=== PATIENT | male | born 1940 | race Caucasian/White ===

== ENCOUNTER 2017-12-24 00:40 | Emergency (ER) | payer MEDICARE ==
[2017-12-24 01:41] LABS: APPEARANCE,URINE SLIGHTLY-CLOUDY; BILIRUBIN,URINE NEGATIVE (NEGATIVE); COLOR,URINE YELLOW; GLUCOSE, URINE NEGATIVE (NEGATIVE); KETONES,URINE NEGATIVE (NEGATIVE); LEUKOCYTE ESTERASE,URINE NEGATIVE (NEGATIVE); NITRITE,URINE NEGATIVE (NEGATIVE); PROTEIN,URINE NEGATIVE (NEGATIVE); UROBILINOGEN,URINE NEGATIVE mg/dL (<2.0)
--- NOTE | 2017-12-24 01:42 | ER Document Report ---
ED Medical Screen (RME) - General Chief Complaint: Chest Pain Stated Complaint: CHEST PAIN Time Seen by Provider: 12/24/17 01:40 Mode of Arrival: Wheelchair Information source: Patient Notes: Patient presents complaining of midsternal chest pain that goes to the upper abdomen that started today around 8 PM. Patient states he also had pain to bilateral arms. Patient states pain would worsen when he would recline and would get better when he would sit upright. Patient states that the pain did seem to be somewhat worse after eating. Patient denies any nausea or vomiting, difficulty breathing, cough or cold symptoms. I have greeted and performed a rapid initial assessment of this patient. A comprehensive ED assessment and evaluation of the patient, analysis of test results and completion of the medical decision making process will be conducted by additional ED providers. TRAVEL OUTSIDE OF THE [place] IN LAST 30 DAYS: No Physical Exam - Vital signs Vitals: Temp Pulse Resp BP Pulse Ox 97.9 F 57 L 16 198/103 H 99 12/24/17 00:53 12/24/17 00:53 12/24/17 00:53 12/24/17 00:53 12/24/17 00:53 - Cardiovascular Rhythm: Regular Heart sounds: S1 appreciated, S2 appreciated - Abdominal Inspection: Normal Tenderness: Nontender Course - Vital Signs Vital signs: Temp Pulse Resp BP Pulse Ox 97.9 F 57 L 16 198/103 H 99 12/24/17 00:53 12/24/17 00:53 12/24/17 00:53 12/24/17 00:53 12/24/17 00:53
[2017-12-24 02:12] LABS: ABSOLUTE EOSINOPHILS # (AUTO) 0.2 10^3/uL (0.0-0.6); ABSOLUTE LYMPHOCYTES (AUTO) 0.8 10^3/uL (0.5-4.7); ABSOLUTE MONOCYTES (AUTO) 0.4 10^3/uL (0.1-1.4); ABSOLUTE NEUT (AUTO) 5.2 10^3/uL (1.7-8.2); BASOPHILS % (AUTO) 0.7 % (0-2); HEMATOCRIT 43.6 % (37.9-51.0); HEMOGLOBIN 14.8 g/dL (13.5-17.0); LYMPHOCYTES % (AUTO) 12.3 % (13-45); MEAN CORPUSCULAR VOLUME 91 fl (80-97); MONOCYTES % (AUTO) 6.7 % (3-13); PLATELET COUNT 154 10^3/uL (150-450); RED BLOOD COUNT 4.78 10^6/uL (4.35-5.55); RED CELL DISTRIBUTION WIDTH 13.6 % (11.5-14.0); SEGMENTED NEUTROPHILS % (AUTO) 77.3 % (42-78); TOTAL CELLS COUNTED % (AUTO) 100 %; WHITE BLOOD COUNT 6.7 10^3/uL (4.0-10.5)
[2017-12-24 02:27] LABS: ALANINE AMINOTRANSFERASE 32 U/L (21-72); ALBUMIN 4.4 g/dL (3.5-5.0); ALKALINE PHOSPHATASE 47 U/L (38-126); ANION GAP 13 (5-19); ASPARTATE AMINO TRANSFERASE 37 U/L (17-59); BILIRUBIN,DIRECT 0.2 mg/dL (0.0-0.4); BILIRUBIN,TOTAL 0.2 mg/dL (0.2-1.3); BLOOD UREA NITROGEN 20 mg/dL (7-20); CALCIUM 9.5 mg/dL (8.4-10.2); CARBON DIOXIDE 27 mmol/L (22-30); CHLORIDE 108 mmol/L (98-107); CREATINE KINASE 112 U/L (55-170); GLUCOSE 147 mg/dL (75-110); POTASSIUM 3.7 mmol/L (3.6-5.0); SODIUM 148.3 mmol/L (137-145); TOTAL PROTEIN 7.4 g/dL (6.3-8.2)
[2017-12-24 02:39] LABS: CREATINE KINASE MB 5.48 ng/mL (<4.55)
--- NOTE | 2017-12-24 02:41 | ER Document Report ---
ED General - General Chief Complaint: Chest Pain Stated Complaint: CHEST PAIN Time Seen by Provider: 12/24/17 01:40 Mode of Arrival: Wheelchair Information source: Patient, Relative Notes: 77-year-old male history of hypertension glaucoma presents with complaints of epigastric pain. Patient believes it is gastric reflux states it seems to worsen after eating. Patient notes over the past couple days now pain occurs lasting 30 minutes an hour associated with bilateral arm dull achiness. Patient denies any fevers or chills denies any shortness breath difficulty breathing. Patient denies any previous cardiac history TRAVEL OUTSIDE OF THE [place] IN LAST 30 DAYS: No - HPI Onset: Other Onset/Duration: Intermittent Quality of pain: Pressure Severity: Mild Pain Level: 1 Associated symptoms: Chest pain, Other Exacerbated by: Food Relieved by: Denies Similar symptoms previously: No Recently seen / treated by doctor: No - Related Data Allergies/Adverse Reactions: No Known Allergies Allergy (Unverified 12/24/17 04:57) Past Medical History - General Information source: Patient - Social History Smoking Status: Never Smoker Cigarette use (# per day): No Chew tobacco use (# tins/day): No Smoking Education Provided: No Family History: Reviewed & Not Pertinent Review of Systems - Review of Systems Notes: REVIEW OF SYSTEMS: CONSTITUTIONAL : Denies fever, chills, or sweats. Denies recent illness. EENT: Denies eye, ear, throat, or mouth pain or symptoms. Denies nasal or sinus congestion or discharge. Denies throat, tongue, or mouth swelling or difficulty swallowing. CARDIOVASCULAR: Admits to chest pain rating to bilateral arm RESPIRATORY: Denies cough, cold, or chest congestion. Denies shortness of breath, difficulty breathing, or wheezing. GASTROINTESTINAL: Denies abdominal pain or distention. Denies nausea, vomiting , or diarrhea. Denies blood in vomitus, stools, or per rectum. Denies black, tarry stools. Denies constipation. GENITOURINARY: Denies difficulty urinating, painful urination, burning, frequency, blood in urine, or discharge. MUSCULOSKELETAL: Denies back or neck pain or stiffness. Denies joint pain or swelling. SKIN: Denies rash, lesions or sores. HEMATOLOGIC : Denies easy bruising or bleeding. LYMPHATIC: Denies swollen, enlarged glands. NEUROLOGICAL: Denies confusion or altered mental status. Denies passing out or loss of consciousness. Denies dizziness or lightheadedness. Denies headache. Denies weakness or paralysis or loss of use of either side. Denies problems with gait or speech. Denies sensory loss, numbness, or tingling. Denies seizures. PSYCHIATRIC: Denies anxiety or stress. Denies depression, suicidal ideation, or homicidal ideation. ALL OTHER SYSTEMS REVIEWED AND NEGATIVE. Dictation was performed using [employer] voice recognition software PHYSICAL EXAMINATION: GENERAL: Well-appearing, well-nourished and in no acute distress. HEAD: Atraumatic, normocephalic. EYES: Pupils equal round and reactive to light, extraocular movements intact, sclera anicteric, conjunctiva are normal. ENT: Nares patent, oropharynx clear without exudates. Moist mucous membranes. NECK: Normal range of motion, supple without lymphadenopathy LUNGS: Breath sounds clear to auscultation bilaterally and equal. No wheezes rales or rhonchi. HEART: Regular rate and rhythm without murmurs ABDOMEN: Soft, nontender, nondistended abdomen. No guarding, no rebound. No masses appreciated. Musculoskeletal: Normal range of motion, no pitting or edema. No cyanosis. NEUROLOGICAL: Cranial nerves grossly intact. Normal speech, normal gait. Normal sensory, motor exams PSYCH: Normal mood, normal affect. SKIN: Warm, Dry, normal turgor, no rashes or lesions noted. Physical Exam - Vital signs Vitals: Temp Pulse Resp BP Pulse Ox 97.9 F 57 L 16 198/103 H 99 12/24/17 00:53 12/24/17 00:53 12/24/17 00:53 12/24/17 00:53 12/24/17 00:53 Course - Re-evaluation Re-evalutation: 12/24/17 02:40 Patient's presentation is most consistent gastric reflux except he continues to have this intermittent pain with arm achiness as well, he is hypertensive upon arrival, my concern is for acute coronary syndrome, lab work pending patient has been told that he will be admitted 12/24/17 02:58 Patient's troponin is noted to be elevated, this is concerning for an acute coronary syndrome, my concern here is for a possible posterior infarct it is noted on EKG that there is elevation in aVR with depressions in V4 V5 V6 aspirin full dose prior to arrival ekg , Repeat EKG has been ordered 12/24/17 03:18 Contacted [facility] second ekg notes continued depression , awiaitng cardio call back 12/24/17 03:[address] Graham, he requests a copy of the EKG which is been sent to him 12/24/17 04:21 Dr Graham believes it is an NSTEMI, requests heparin , lopressor, nitro drip 600mg of plavix Helicopter to the patient with no concern - Vital Signs Vital signs: Temp Pulse Resp BP Pulse Ox 97.9 F 57 L 14 170/100 H 99 12/24/17 00:53 12/24/17 00:53 12/24/17 04:21 12/24/17 04:21 12/24/17 04:21 - Laboratory Result Diagrams: 12/24/17 04:16 12/24/17 02:05 Laboratory results interpreted by me: 12/24/17 12/24/17 12/24/17 02:05 02:05 02:05 Plt Count Lymphocytes % 12.3 L Sodium 148.3 H Chloride 108 H Glucose 147 H CK-MB (CK-2) 5.48 H Urine Ketones 12/24/17 12/24/17 04:01 04:16 Plt Count 147 L Lymphocytes % Sodium Chloride Glucose CK-MB (CK-2) Urine Ketones TRACE H - Diagnostic Test Radiology reviewed: Image reviewed - no acute abnormaltiy, Reports reviewed - EKG Interpretation by Me EKG shows normal: Sinus rhythm, Cornucopia, Intervals, QRS Complexes, ST-T Waves - ST elevation noted in aVR depressions noted in 1 2 V3 V4 V5 V6 Critical Care Note - Critical Care Note Total time excluding time spent on procedures (mins): 65 Comments: 65 minutes of critical care time spent in direct contact evaluating and reevaluating the patient, treating symptoms, reviewing labs and studies and speaking with family and consultants excluding any procedures Discharge - Discharge Clinical Impression: NSTEMI (non-ST elevated myocardial infarction) Condition: Stable Disposition: [facility] Referrals: SUE WALLACE MD [Primary Care Provider] - Follow up as needed
[2017-12-24 02:53] LABS: TROPONIN I 0.377 ng/mL
--- NOTE | 2017-12-24 03:28 | RADIOLOGY REPORT (SQ) ---
EXAM DESCRIPTION: CHEST 2 VIEWS COMPLETED DATE/TIME: 12/24/2017 2:31 am REASON FOR STUDY: cp COMPARISON: 02/05/2007 EXAM PARAMETERS: NUMBER OF VIEWS: two views TECHNIQUE: Digital Frontal and Lateral radiographic views of the chest acquired. RADIATION DOSE: NA LIMITATIONS: none FINDINGS: LUNGS AND PLEURA: No opacities, masses or pneumothorax. No pleural effusion. MEDIASTINUM AND HILAR STRUCTURES: No masses or contour abnormalities. HEART AND VASCULAR STRUCTURES: Heart normal size. No evidence for failure. BONES: No acute findings. HARDWARE: None in the chest. OTHER: No other significant finding. IMPRESSION: NO ACUTE RADIOGRAPHIC FINDING IN THE CHEST. TECHNICAL DOCUMENTATION: JOB ID: [id number] [employer]- All Rights Reserved Reading location - IP/workstation name: [email or web address]
[2017-12-24] MEDS ORDERED: NITROGLYCERIN 0.4 MG/TAB 25 TAB/BOTTLE ONE (03:49)
[2017-12-24] MEDS ORDERED: NITROGLYCERIN/D5W 50 MG/250 ML RTUINJ IV ONE (03:53)
[2017-12-24] MEDS ORDERED: HEPARIN SOD (PORCINE) 1,000 UNIT/ML 10 ML VIAL IV ONE (03:55)
[2017-12-24] MEDS ORDERED: METOPROLOL TARTRATE PF/INJ 5 MG/5 ML SDV IV PRN (03:55)
[2017-12-24] MEDS ORDERED: CLOPIDOGREL BISULFATE 300 MG TABLET PO ONE (03:55)
[2017-12-24] MEDS ORDERED: HEPARIN SODIUM,PORCINE/D5W 25,000 UNIT/250 ML RTUINJ IV PRN (03:55)
[2017-12-24] MEDS ORDERED: NITROGLYCERIN/D5W 50 MG/250 ML RTUINJ IV PRN (03:55)
[2017-12-24 04:09] LABS: INTERNATIONAL RATION (INR) 0.95; PROTHROMBIN TIME 13.1 SEC (11.4-15.4)
[2017-12-24 04:17] LABS: APPEARANCE,URINE SLIGHTLY-CLOUDY; BILIRUBIN,URINE NEGATIVE (NEGATIVE); COLOR,URINE YELLOW; GLUCOSE, URINE NEGATIVE (NEGATIVE); KETONES,URINE TRACE mg/dL (NEGATIVE); LEUKOCYTE ESTERASE,URINE NEGATIVE (NEGATIVE); NITRITE,URINE NEGATIVE (NEGATIVE); PROTEIN,URINE NEGATIVE (NEGATIVE); URINE SPECIFIC GRAVITY 1.015; UROBILINOGEN,URINE NEGATIVE mg/dL (<2.0)
[2017-12-24 04:23] VITALS: BP 170/100
[2017-12-24 04:27] LABS: ABSOLUTE EOSINOPHILS # (AUTO) 0.1 10^3/uL (0.0-0.6); ABSOLUTE LYMPHOCYTES (AUTO) 0.8 10^3/uL (0.5-4.7); ABSOLUTE MONOCYTES (AUTO) 0.4 10^3/uL (0.1-1.4); ABSOLUTE NEUT (AUTO) 4.5 10^3/uL (1.7-8.2); BASOPHILS % (AUTO) 0.5 % (0-2); EOSINOPHILS % (AUTO) 1.9 % (0-6); HEMATOCRIT 43.8 % (37.9-51.0); HEMOGLOBIN 14.8 g/dL (13.5-17.0); LYMPHOCYTES % (AUTO) 14.2 % (13-45); MEAN CORPUSCULAR HEMOGLOBIN 31.2 pg (27.0-33.4); MEAN CORPUSCULAR HGB CONC 33.8 g/dL (32.0-36.0); MEAN CORPUSCULAR VOLUME 92 fl (80-97); MONOCYTES % (AUTO) 7.2 % (3-13); PLATELET COUNT 147 10^3/uL (150-450); RED BLOOD COUNT 4.75 10^6/uL (4.35-5.55); RED CELL DISTRIBUTION WIDTH 13.5 % (11.5-14.0); SEGMENTED NEUTROPHILS % (AUTO) 76.2 % (42-78); TOTAL CELLS COUNTED % (AUTO) 100 %; WHITE BLOOD COUNT 5.9 10^3/uL (4.0-10.5)
[2017-12-24] MEDS ORDERED: HEPARIN SOD (PORCINE) 1,000 UNIT/ML 10 ML VIAL IV PRN (06:56)
--- NOTE | 2017-12-24 07:15 | EKG REPORT ---
SEVERITY:- ABNORMAL ECG - SINUS RHYTHM MULTIPLE ATRIAL PREMATURE COMPLEXES BORDERLINE LEFT AXIS DEVIATION REPOL ABNRM SUGGESTS ISCHEMIA, DIFFUSE LEADS : Confirmed by: Claudio Rosario MD 24-Dec-2017 07:15:20
--- NOTE | 2017-12-24 07:17 | EKG REPORT ---
SEVERITY:- ABNORMAL ECG - SINUS RHYTHM PROBABLE POSTERIOR INFARCT NONSPECIFIC T ABNORMALITIES, LATERAL LEADS : Confirmed by: Claudio Rosario MD 24-Dec-2017 07:15:54
== END 2017-12-24 05:00 | disposition short-term general hospital (02) ==
LOC: ER 00:40
DX: I21.4 Non-ST elevation (NSTEMI) myocardial infarction (principal); M79.602 Pain in left arm; M79.601 Pain in right arm; R10.13 Epigastric pain; R07.9 Chest pain, unspecified; I10 Essential (primary) hypertension
CPT/HCPCS: 93005; 99285; 96375; 96365; 96368; 36415; 82553; 82550; 83735; 85025; 85610; 85730; 80053; 81001; 84484; 71046; 93010; A9270; J1644 ×2; J3490 ×2

== ENCOUNTER → 2019-09-15 | Outpatient (CLI) | payer MEDICARE ==
--- NOTE | 2019-09-15 16:27 | RADIOLOGY REPORT (SQ) ---
EXAM DESCRIPTION: MRI HEAD COMBO COMPLETED DATE/TIME: 09/15/2019 4:16 pm REASON FOR STUDY: H90.5 UNSPECIFIED SENSORINEURAL HEARING LOSS H90.5 UNSPECIFIED SENSORINEURAL HEAR ING LOSS COMPARISON: None. TECHNIQUE: Multiplanar imaging includes noncontrasted T1, T2, FLAIR, and Diffusion with ADC map seq uences. Contrast enhanced T1 images. Images stored on PACS. CONTRAST TYPE AND DOSE: 15 mL Dotarem. RENAL FUNCTION: Not indicated. ACR Type II contrast agent associated with few, if any, unconfounded cases of NSF LIMITATIONS: None. FINDINGS: ANATOMY: No anomalies. Normal vascular flow voids. Pituitary fossa normal. CSF SPACES: Normal size and contour. No hemorrhage. CEREBRUM: A few high-signal intensity lesions scattered throughout the white matter on FLAIR imaging with distribution suggesting chronic microvascular ischemic change. Sulci and gyri normal in size and contour. No evidence of hemorrhage, mass or extraaxial fluid collection. No enhancing lesions. POSTERIOR FOSSA: No signal alteration. No hemorrhage. No edema, masses or mass effect. Internal audit ory canals, cerebello-pontine angles, mastoids normal. DIFFUSION: Negative for acute or subacute infarction. ORBITS: No masses. Globes normal. OTHER: No other significant finding. IMPRESSION: No acute findings in the brain. Normal IAC's. EVIDENCE OF ACUTE STROKE: NO. TECHNICAL DOCUMENTATION: JOB ID: [id number] [employer]- All Rights Reserved Reading location - IP/workstation name: [email or web address]
== END ==
LOC: RAD 14:34
PROVIDERS: ATTEND Otolaryngology
DX: H90.5 Unspecified sensorineural hearing loss (principal)
CPT/HCPCS: 82565; 70553; A9576

== ENCOUNTER 2020-08-11 03:44 | Observation (INO) | payer MEDICARE ==
[2020-08-11 05:11] LABS: ABSOLUTE EOSINOPHILS # (AUTO) 0.2 10^3/uL (0.0-0.6); ABSOLUTE LYMPHOCYTES (AUTO) 0.8 10^3/uL (0.5-4.7); ABSOLUTE MONOCYTES (AUTO) 0.4 10^3/uL (0.1-1.4); ABSOLUTE NEUT (AUTO) 2.9 10^3/uL (1.7-8.2); BASOPHILS % (AUTO) 0.8 % (0-2); EOSINOPHILS % (AUTO) 4.6 % (0-6); HEMATOCRIT 34.4 % (37.9-51.0); HEMOGLOBIN 12.1 g/dL (13.5-17.0); LYMPHOCYTES % (AUTO) 18.8 % (13-45); MEAN CORPUSCULAR HEMOGLOBIN 32.4 pg (27.0-33.4); MEAN CORPUSCULAR HGB CONC 35.1 g/dL (32.0-36.0); MEAN CORPUSCULAR VOLUME 92 fl (80-97); MONOCYTES % (AUTO) 9.5 % (3-13); PLATELET COUNT 133 10^3/uL (150-450); RED BLOOD COUNT 3.73 10^6/uL (4.35-5.55); RED CELL DISTRIBUTION WIDTH 13.7 % (11.5-14.0); SEGMENTED NEUTROPHILS % (AUTO) 66.3 % (42-78); TOTAL CELLS COUNTED % (AUTO) 100 %; WHITE BLOOD COUNT 4.4 10^3/uL (4.0-10.5)
[2020-08-11 05:19] LABS: ALBUMIN 4.1 g/dL (3.5-5.0); ALKALINE PHOSPHATASE 42 U/L (38-126); ANION GAP 9 (5-19); ASPARTATE AMINO TRANSFERASE 40 U/L (17-59); BILIRUBIN,DIRECT 0.2 mg/dL (0.0-0.4); BILIRUBIN,TOTAL 0.5 mg/dL (0.2-1.3); BLOOD UREA NITROGEN 25 mg/dL (7-20); CALCIUM 9.4 mg/dL (8.4-10.2); CARBON DIOXIDE 25 mmol/L (22-30); CHLORIDE 105 mmol/L (98-107); GLUCOSE 123 mg/dL (75-110); POTASSIUM 4.1 mmol/L (3.6-5.0); TOTAL PROTEIN 6.8 g/dL (6.3-8.2)
--- NOTE | 2020-08-11 06:03 | ER Document Report ---
ED Medical Screen (RME) - General Chief Complaint: GI Bleeding Stated Complaint: GI BLEED/NEAR SYNCOPAL EVENT Primary Care Provider: SUE WALLACE MD [Primary Care Provider] - Follow up as needed Notes: 80-year-old male presents with several episodes of bright red blood per rectum over the last 2 days which colored the surface of the toilet bowl red, patient unable to further quantify, feels weak generally but no syncope, no abdominal pain, no fever. TRAVEL OUTSIDE OF THE [place] IN LAST 30 DAYS: No - Related Data Allergies/Adverse Reactions: No Known Allergies Allergy (Unverified 12/24/17 04:57) Past Medical History - General Information source: Patient - Past Medical History Cardiac Medical History: Reports: Hx Hypertension Renal/ Medical History: Denies: Hx Peritoneal Dialysis Review of Systems - Review of Systems Notes: No melena, no abdominal pain Physical Exam - Vital signs Vitals: Pulse Ox 99 08/11/20 03:52 - Notes Notes: Talkative elderly man sitting up in stretcher in no acute distress Course - Re-evaluation Re-evalutation: I have greeted and performed a rapid initial assessment of this patient. A comprehensive ED assessment and evaluation of the patient, analysis of test results and completion of medical decision making process will be conducted by additional ED providers. - Vital Signs Vital signs: Temp Pulse Resp BP Pulse Ox 98.1 F 16 152/102 H 98 08/11/20 03:55 08/11/20 05:01 08/11/20 05:01 08/11/20 05:01 - Laboratory Results Result Diagrams: 08/11/20 04:13 08/11/20 04:13 Laboratory Results Interpreted: 08/11/20 08/11/20 04:13 04:13 RBC 3.73 L Hgb 12.1 L Hct 34.4 L Plt Count 133 L BUN 25 H Glucose 123 H Doctor's Discharge - Discharge Referrals: SUE WALLACE MD [Primary Care Provider] - Follow up as needed
[2020-08-11 06:05] LABS: INTERNATIONAL RATION (INR) 0.99; PARTIAL THROMBOPLASTIN TIME 27.8 SEC (23.5-35.8); PROTHROMBIN TIME 13.3 SEC (11.4-15.4)
--- NOTE | 2020-08-11 07:04 | ER Document Report ---
ED General - General Chief Complaint: GI Bleeding Stated Complaint: GI BLEED/NEAR SYNCOPAL EVENT Time Seen by Provider: 08/11/20 06:54 Primary Care Provider: NABIL FORRESTER MD [Primary Care Provider] - Follow up as needed TRAVEL OUTSIDE OF THE [place] IN LAST 30 DAYS: No - HPI Notes: Chief complaint: Rectal bleeding History of present illness: Mr. Suarez is a 80-year-old male patient of Dr. Nabil Forrester who is a rather rambling historian presenting with 2-day history intermittent painless rectal bleeding not associated with abdominal pain, fever, chills, nausea or vomiting. He is not taking any anticoagulation other than aspirin. Patient says he noted some painless rectal bleeding with morning bowel movement yesterday around 10 AM. He has had about 6 more episodes of passing small amounts of bright red rectal blood with bowel movement since then. He felt "slightly weak" at one time but there was no loss of consciousness. Patient notes that he had an elective hernia repair in [facility] about 5 years ago. Prior to that surgery he had a colonoscopy and was told he had some internal hemorrhoids with no other abnormal findings. He says he has no history of polyps. His family history is negative for inflammatory bowel disease or colorectal cancer. He is on medication for hypertension and has had a past PR. He is a non-smoker. - Related Data Allergies/Adverse Reactions: No Known Allergies Allergy (Unverified 12/24/17 04:57) Past Medical History - General Information source: Patient - Social History Smoking Status: Never Smoker Frequency of alcohol use: Rare Drug Abuse: None Lives with: Spouse/Significant other Family History: Reviewed & Not Pertinent - Past Medical History Cardiac Medical History: Reports: Hx Coronary Artery Disease, Hx Hypertension Endocrine Medical History: Denies: Hx Diabetes Mellitus Type 1, Hx Diabetes Mellitus Type 2 Renal/ Medical History: Reports: Hx Benign Prostatic Hyperplasia. Denies: Hx Peritoneal Dialysis Malignancy Medical History: Reports None GI Medical History: Reports: Other - Hemorrhoids Past Surgical History: Reports: Hx Herniorrhaphy Review of Systems - Review of Systems Notes: Constitutional: Negative for fever. Weight is stable. HENT: Negative for sore throat. Eyes: Negative for visual changes. Cardiovascular: Negative for chest pain. Respiratory: Negative for shortness of breath. Gastrointestinal: As per HPI. Genitourinary: Negative for dysuria. Musculoskeletal: Negative for back pain. Skin: Negative for rash. Neurological: Negative for headaches, focal weakness or numbness. 10 point ROS negative except as marked above and in HPI. Physical Exam - Vital signs Vitals: Pulse Ox 99 08/11/20 03:52 - Notes Notes: GENERAL: Well-developed well-nourished elderly man appearing in no acute distress. SKIN: Good turgor no rashes. HEAD: Normocephalic atraumatic. EYES: PERRLA. EOMI. Conjunctivae and sclerae clear. EARS: CANALS AND TMS CLEAR. NOSE: CLEAR. MOUTH: Moist mucosa. Good dentition. No stridor or edema. No drooling. NECK: Supple. No masses or thyromegaly. No adenopathy. Carotids 2+ without bruits. No JVD. BACK: Symmetrical without tenderness. CHEST: Respirations unlabored. Breath sounds clear and symmetrical. HEART: Regular rhythm. No murmur gallop or rub. ABDOMEN: Soft nontender without masses, organomegaly or rebound. Bowel sounds normally active. No bruits. Rectal: Palpable internal hemorrhoids. No masses. Small amount of dark stool in the rectal vault which is weakly heme positive. EXTREMITIES: No edema. No calf tenderness. Cap refill less than 1.5 seconds. Dorsalis pedis and posterior tibial pulses 3+ and symmetrical. NEUROLOGICAL: GCS 15. Alert and oriented x3. Normal gait. Fluent speech. Cranial nerves II through XII intact. Sensorimotor and cerebellar normal. Normal tone. PSYCHIATRIC: Appropriate affect. Course - Re-evaluation Re-evalutation: 08/11/20 09:08 This man is mildly orthostatic. His hemoglobin is down from his previous baseline of 14-12 currently. Platelet count is marginally low 135. PT and PTT are normal. CTA abdomen/pelvis showed diverticula of the colon with no active bleeding identified. Patient is n.p.o. He has had normal saline IV. He has been discussed with the hospitalist service and they will admit. Surgical consultation with Dr. Hackett to be obtained for colonoscopy. - Vital Signs Vital signs: Temp Pulse Resp BP Pulse Ox 98.1 F 72 18 136/101 H 96 08/11/20 03:55 08/11/20 07:10 08/11/20 09:00 08/11/20 08:46 08/11/20 07:02 - Laboratory Results Result Diagrams: 08/11/20 04:13 08/11/20 04:13 Laboratory Results Interpreted: 08/11/20 08/11/20 04:13 04:13 RBC 3.73 L Hgb 12.1 L Hct 34.4 L Plt Count 133 L BUN 25 H Glucose 123 H Critical Laboratory Results Reviewed: Yes Attending or Supervising Physician who Reviewed Labs: KRISTOPHER INTERIANO - Radiology Results Radiology Results Interpreted: 08/11/20 09:07 Abdomen/Pelvis CTA 08/11/20 06:52 IMPRESSION: No abdominal aortic aneurysm, dissection, or flow limiting stenosis. No evidence of active enteric hemorrhage. No acute findings. Chronic and incidental findings as detailed above. Colonic diverticula noted Critical Radiology Results Reviewed: Yes Attending or Supervising Physician who Reviewed Radiology: KRISTOPHER INTERIANO Discharge - Discharge Clinical Impression: Acute lower gastrointestinal bleeding Disposition: ADMITTED INPATIENT Admitting Provider: Keiry (Hospitalist) Unit Admitted: Medical Floor Referrals: NABIL FORRESTER MD [Primary Care Provider] - Follow up as needed
--- NOTE | 2020-08-11 08:30 | RADIOLOGY REPORT (SQ) ---
EXAM DESCRIPTION: CTA ABDOMEN/PELVIS W WO IMAGES COMPLETED DATE/TIME: 08/11/2020 7:54 am REASON FOR STUDY: Rectal bleeding COMPARISON: None. TECHNIQUE: CT scan of the abdominal aorta extending to the iliac bifurcation performed with intraven ous contrast using helical scanning technique with dynamic intravenous contrast injection. Images rev iewed with lung, soft tissue, and bone windows. Reconstructed coronal and sagittal MPR images reviewe d. All images stored on PACS. Advanced 3D imaging as volume rendering, MIPS, SSD performed? yes All CT scanners at this facility use dose modulation, iterative reconstruction, and/or weight based d osing when appropriate to reduce radiation dose to as low as reasonably achievable (ALARA). [facility]: Dose Right [facility]: CareDose [facility]: Dose Right [facility]: Teradose 4D [facility]: [employer] CONTRAST TYPE AND DOSE: contrast/concentration: Isovue 350.00 mmol/ml; Total Contrast Delivered: 85. 0 ml; Total Saline Delivered: 70.0 ml RENAL FUNCTION: BUN 25; creatinine 0.81 LIMITATIONS: None. FINDINGS: NON-CONTRASTED IMAGING: Post contrast images only. POST-CONTRAST IMAGING: AORTA AND VESSELS: No aneurysm. No dissection. Atherosclerotic vascular calcifications noting less than 50% focal stenosis of the distal celiac trunk. The major visceral branches remain patent. LUNG BASES: No significant findings. No nodules or infiltrates. LIVER: Normal size. No masses or dilated ducts. SPLEEN: Normal size. No focal lesions. PANCREAS: No masses. No significant calcifications. No adjacent inflammation or peripancreatic fluid collections. Pancreatic duct not dilated. GALLBLADDER: No identified stones by CT criteria. No inflammatory changes to suggest cholecystitis. ADRENAL GLANDS: No significant masses or asymmetry. RIGHT KIDNEY AND URETER: No mass, calculi or urinary tract obstruction. LEFT KIDNEY AND URETER: No mass, calculi or urinary tract obstruction. RETROPERITONEUM: No retroperitoneal adenopathy, hemorrhage or masses. BOWEL AND PERITONEAL CAVITY: Colonic diverticula without focal inflammatory changes. No evidence act isaac enteric hemorrhage. No mass. APPENDIX: Normal. ABDOMINAL WALL: Bilateral fat containing inguinal hernias. BONY STRUCTURES: No significant or acute findings. 3-D IMAGING: Confirms the above findings. OTHER: Incidental note is made of a diffusely enlarged prostate gland measuring on the order of 5.7 x 6.0 x 5.8 cm and exerting mass effect upon the base of the bladder. IMPRESSION: No abdominal aortic aneurysm, dissection, or flow limiting stenosis. No evidence of act isaac enteric hemorrhage. No acute findings. Chronic and incidental findings as detailed above. TECHNICAL DOCUMENTATION: JOB ID: [id number] Quality ID # [id number]: Final reports with documentation of one or more dose reduction techniques (e.g., Au tomated exposure control, adjustment of the mA and/or kV according to patient size, use of iterative reconstruction technique) 2010 [employer]- All Rights Reserved Reading location - IP/workstation name: [email or web address]
[2020-08-11] MEDS ORDERED: NORMAL SALINE 1000 ML 1,000 ML IV ONE (08:59)
[2020-08-11] MEDS: PANTOPRAZOLE SODIUM 40 MG VIAL IV SCH ×2 (09:22→21:45)
[2020-08-11 09:38] LABS: HEMATOCRIT 34.3 % (37.9-51.0); HEMOGLOBIN 11.9 g/dL (13.5-17.0); MEAN CORPUSCULAR HEMOGLOBIN 32.1 pg (27.0-33.4); MEAN CORPUSCULAR HGB CONC 34.5 g/dL (32.0-36.0); MEAN CORPUSCULAR VOLUME 93 fl (80-97); PLATELET COUNT 155 10^3/uL (150-450); RED CELL DISTRIBUTION WIDTH 13.9 % (11.5-14.0); WHITE BLOOD COUNT 5.6 10^3/uL (4.0-10.5)
[2020-08-11] MEDS ORDERED: NORMAL SALINE 1000 ML 1,000 ML IV PRN (11:06)
--- NOTE | 2020-08-11 12:02 | PDOC CONSULTATION ---
Consultation Consult Date: 08/11/20 Attending physician:: KRISTOPHER INTERIANO Provider Consulted: PHILIP LIZ Consult reason:: GI bleed History of Present Illness Admission Date/PCP: 08/11/20 09:15 SUE FORRESTER MD History of Present Illness: ABBI OWUSU is a 80 year old male patient of Dr. Sue Forrester who is a rather rambling historian presenting with 2-day history intermittent painless rectal bleeding not associated with abdominal pain, fever, chills, nausea or vomiting. He is not taking any anticoagulation other than aspirin. Patient says he noted some painless rectal bleeding with morning bowel movement yesterday around 10 AM. He has had about 6 more episodes of passing small amounts of bright red rectal blood with bowel movement since then. He felt "slightly weak" at one time but there was no loss of consciousness. Patient notes that he had an elective hernia repair in [facility] about 5 years ago. Prior to that surgery he had a colonoscopy and was told he had some internal hemorrhoids with no other abnormal findings. He says he has no history of polyps. His family history is negative for inflammatory bowel disease or colorectal cancer Past Medical History Cardiac Medical History: Reports: Coronary Artery Disease, Hypertension Endocrine Medical History: Denies: Diabetes Mellitus Type 1, Diabetes Mellitus Type 2 Malignancy Medical History: Reports: None GI Medical History: Reports: Other - Hemorrhoids Past Surgical History Past Surgical History: Reports: Herniorrhaphy Social History Lives with: Spouse/Significant other Smoking Status: Never Smoker Family History Family History: Reviewed & Not Pertinent Parental Family History Reviewed: No Children Family History Reviewed: NA Sibling(s) Family History Reviewed.: NA Medication/Allergy Home Medications: Acyclovir 800 mg PO 5XD #35 tablet 08/12/16 Diphenhydramine HCl [Benadryl 25 Mg Capsule] 25 mg PO Q6 #30 capsule 08/12/16 Famotidine [Pepcid 20 mg Tablet] 20 mg PO BID #12 tablet 08/12/16 Allergies/Adverse Reactions: No Known Allergies Allergy (Unverified 12/24/17 04:57) Review of Systems Constitutional: ABSENT: as per HPI, anorexia, chills, fatigue, fever(s), headache(s), night sweats, weakness, weight gain, weight loss, other Eyes: ABSENT: as per HPI, visual disturbances, other Ears: ABSENT: as per HPI, hearing changes, other Nose, Mouth, and Throat: ABSENT: as per HPI, headache(s), mouth pain, sore throat, vertigo, other Cardiovascular: ABSENT: as per HPI, chest pain, dyspnea on exertion, edema, orthropnea, palpitations, other Respiratory: ABSENT: as per HPI, cough, dyspnea, hemoptysis, sputum, other Gastrointestinal: PRESENT: as per HPI Genitourinary: ABSENT: as per HPI, difficulty urinating, dysuria, hematuria, nocturia, other Musculoskeletal: ABSENT: as per HPI, back pain, deformity, joint swelling, muscle weakness, other Integumentary: ABSENT: as per HPI, diaphoresis, erythema, lesions, pruritus, rash, wounds, other Neurological: ABSENT: as per HPI, abnormal gait, abnormal movements, abnormal speech, confusion, convulsions, dizziness, focal weakness, frequent falls, lack of coordination, memory loss, numbness, paresthesias, restless legs, syncope, tingling, tremor(s), vertigo, weakness, other Psychiatric: ABSENT: as per HPI, anxiety, depression, hallucinations, homidical ideation, suicidal ideation, other Endocrine: ABSENT: as per HPI, cold intolerance, flushing, heat intolerance, menstrual abnormalities, polydipsia, polyphagia, polyuria, other Hematologic/Lymphatic: ABSENT: as per HPI, easy bleeding, easy bruising, lymphadenopathy, other Physical Exam Vital Signs: Temp Pulse Resp BP Pulse Ox 98.1 F 72 11 L 193/85 H 100 08/11/20 03:55 08/11/20 07:10 08/11/20 10:03 08/11/20 10:03 08/11/20 10:03 Intake & Output 08/10/20 08/11/20 08/12/20 06:59 06:59 06:59 Intake Total 1000 Balance 1000 Weight 90.9 kg Results Laboratory Results: 08/11/20 09:27 08/11/20 04:13 08/11/20 08/11/20 08/11/20 04:13 04:13 04:13 WBC 4.4 RBC 3.73 L Hgb 12.1 L Hct 34.4 L MCV 92 MCH 32.4 MCHC 35.1 RDW 13.7 Plt Count 133 L Seg Neutrophils % 66.3 Sodium 139.0 Potassium 4.1 Chloride 105 Carbon Dioxide 25 Anion Gap 9 BUN 25 H Creatinine 0.81 Est GFR ( Amer) > 60 Glucose 123 H Lactic Acid Calcium 9.4 Total Bilirubin 0.5 AST 40 Alkaline Phosphatase 42 Total Protein 6.8 Albumin 4.1 Blood Type A POSITIVE Antibody Screen NEGATIVE 08/11/20 08/11/20 09:27 09:27 WBC 5.6 RBC 3.70 L Hgb 11.9 L Hct 34.3 L MCV 93 MCH 32.1 MCHC 34.5 RDW 13.9 Plt Count 155 Seg Neutrophils % Sodium Potassium Chloride Carbon Dioxide Anion Gap BUN Creatinine Est GFR ( Amer) Glucose Lactic Acid 0.9 Calcium Total Bilirubin AST Alkaline Phosphatase Total Protein Albumin Blood Type Antibody Screen 08/11/20 09:27 Troponin I 0.014 Impressions: Abdomen/Pelvis CTA 08/11/20 06:52 IMPRESSION: No abdominal aortic aneurysm, dissection, or flow limiting stenosis. No evidence of active enteric hemorrhage. No acute findings. Chronic and incidental findings as detailed above. Assessment & Plan - Plan Summary Plan Summary: Impression probable lower GI bleeding colonic. Etiology most likely diverticulosis. Patient had a colonoscopy about 5 years ago which did not show any evidence of polyps or masses. Plan. Patient wishes to proceed with colonoscopy as an outpatient if possible and return to his family for Robbie. However because of the ongoing bleeding suggested to him that we watch him overnight and monitor his hemoglobin and hematocrit. Should the bleeding subside and his hemoglobin and hematocrit remained stable he could be discharged home tomorrow with a follow-up in surgical clinic for elective colonoscopy. Therefore we will maintain a clear liquid diet tonight and if he continues to bleed will proceed with bowel prep tomorrow.
[2020-08-11] MEDS ORDERED: IRBESARTAN 300 MG PO SCH (13:45)
[2020-08-11 14:12] LABS: HEMATOCRIT 32.1 % (37.9-51.0); MEAN CORPUSCULAR HEMOGLOBIN 31.5 pg (27.0-33.4); MEAN CORPUSCULAR HGB CONC 34.4 g/dL (32.0-36.0); MEAN CORPUSCULAR VOLUME 92 fl (80-97); PLATELET COUNT 132 10^3/uL (150-450); RED CELL DISTRIBUTION WIDTH 13.6 % (11.5-14.0); WHITE BLOOD COUNT 3.8 10^3/uL (4.0-10.5)
[2020-08-11] MEDS ORDERED: LOSARTAN POTASSIUM 50 MG TABLET PO ONE ×2 (15:00→19:00)
--- NOTE | 2020-08-11 17:11 | PDOC H&P ---
History of Present Illness Admission Date/PCP: 08/11/20 09:15 SUE WALLACE MD Patient complains of: Hematochezia History of Present Illness: ABBI OWUSU is a 80 year old male with past medical history hypertension and CAD you presented to the emergency department today with concerns regarding 2- day history of painless rectal bleeding. Reports sudden onset yesterday morning around 10 AM, since has experienced 6 additional episodes though with notably less blood with each passing bowel movement. Initially stool was full/intact, progressively became looser, loose stools have since resolved. Reports single episode today. Reports episode of feeling slightly weak and woozy after rising from bed and using the restroom, this quickly resolved with rest. Denies syncopal episode. Denies blood thinner use outside of 81 mg aspirin nightly. Denies history of GI bleed in past. His last colonoscopy was 5 years ago significant for internal hemorrhoids and no other findings. Reports abdominal surgical history of hernia repair in [place] 5 years ago. Denies associated fever, chills, abdominal pain, nausea or vomiting. On evaluation in the ED he is hemodynamically stable. Orthostatic hypotension noted, though sbp does not drop below 100. Hbb/Hct on admission 12.1/34.4. Plt count 133. Coagulation studies within normal limits. BUN elevated at 25, creatinine within normal limits. Lactic acid within normal limits. First troponin slightly elevated at 0.014 with a second less than 0.012. EKG without changes. CT abdomen notable for colonic diverticula without inflammatory changes, no evidence of active bleeding. Patient bolused 1L NS in the ED. Hospitalist asked to admit patient for further observation and treatment. Past Medical History Cardiac Medical History: Reports: Coronary Artery Disease, Hypertension Denies: Atrial Fibrillation, Congestive Heart Failure Pulmonary Medical History: Denies: Asthma, Chronic Obstructive Pulmonary Disease (COPD) EENT Medical History: Reports: Other - Glaucoma Neurological Medical History: Denies: Hemorrhagic CVA, Ischemic CVA Endocrine Medical History: Denies: Diabetes Mellitus Type 1, Diabetes Mellitus Type 2, Hyperthyroidism, Hypothyroidism Renal/ Medical History: Denies: Chronic Kidney Disease Malignancy Medical History: Reports: None GI Medical History: Reports: Other - Internal hemorrhoids Denies: Crohn's Disease, Gastroesophageal Reflux Disease, Peptic Ulcer Disease Psychiatric Medical History: Denies: Alcohol Dependency, Substance Abuse, Tobacco Dependency Hematology: Denies: Anemia, Bleeding Tendencies Past Surgical History Past Surgical History: Reports: Coronary Stent, Herniorrhaphy Social History Information Source: Patient Lives with: Spouse/Significant other Smoking Status: Never Smoker Electronic Cigarette use?: No Frequency of Alcohol Use: None Hx Recreational Drug Use: No Drugs: None Hx Prescription Drug Abuse: No - Advance Directive Resuscitation Status: Full Code Family History Family History: Hypertension Parental Family History Reviewed: Yes Children Family History Reviewed: Yes Sibling(s) Family History Reviewed.: Yes Medication/Allergy Home Medications: Aspirin [Ecotrin 81 mg EC Tablet] 81 mg PO QHS 08/11/20 Hydrochlorothiazide [Hydrodiuril 12.5 mg Tablet] 12.5 mg PO QAM 08/11/20 Irbesartan 300 mg PO DAILY 08/11/20 Nitroglycerin [Nitrostat 0.4 mg (1/150 Gr) Tabs 25/Bottle] 1 tab SL Q5MP PRN 08/11/20 Allergies/Adverse Reactions: No Known Allergies Allergy (Unverified 12/24/17 04:57) Review of Systems Constitutional: PRESENT: weakness. ABSENT: anorexia, chills, headache(s) Eyes: ABSENT: visual disturbances Ears: ABSENT: hearing changes Cardiovascular: ABSENT: chest pain, dyspnea on exertion, palpitations Respiratory: ABSENT: cough, dyspnea Gastrointestinal: PRESENT: abdominal pain - Minimal lower left quadrant pain, hematochezia. ABSENT: bloating, constipation, diarrhea, hematemesis, nausea, vomiting Genitourinary: PRESENT: difficulty urinating - Baseline given BPH. ABSENT: dysuria, hematuria Musculoskeletal: ABSENT: back pain Integumentary: ABSENT: diaphoresis, erythema, rash Neurological: PRESENT: other - Presyncope. ABSENT: abnormal speech, confusion, dizziness, syncope Psychiatric: ABSENT: anxiety, depression Endocrine: ABSENT: cold intolerance, heat intolerance Hematologic/Lymphatic: ABSENT: easy bleeding, easy bruising, lymphadenopathy Physical Exam Vital Signs: Temp Pulse Resp BP Pulse Ox 97.7 F 62 18 157/88 H 99 08/11/20 15:26 08/11/20 15:26 08/11/20 15:26 08/11/20 15:26 08/11/20 15:26 Intake & Output 08/10/20 08/11/20 08/12/20 06:59 06:59 06:59 Intake Total 1000 Balance 1000 Weight 90.9 kg 88.4 kg General appearance: PRESENT: no acute distress, cooperative, well-developed, well-nourished Head exam: PRESENT: atraumatic, normocephalic Eye exam: PRESENT: EOMI, PERRLA. ABSENT: scleral icterus Mouth exam: PRESENT: moist, neck supple Neck exam: PRESENT: full ROM. ABSENT: JVD, lymphadenopathy, tenderness Respiratory exam: PRESENT: clear to auscultation tanika, symmetrical, unlabored. ABSENT: rales, rhonchi, tachypnea, wheezes Cardiovascular exam: PRESENT: RRR, +S1, +S2. ABSENT: diastolic murmur, systolic murmur Pulses: PRESENT: normal radial pulses GI/Abdominal exam: PRESENT: normal bowel sounds, soft, tenderness - Minimal tenderness to palpation left lower quadrant. ABSENT: distended, firm, guarding, rigid Rectal exam: PRESENT: deferred - Guaiac positive stools in ED Extremities exam: PRESENT: full ROM. ABSENT: pedal edema Musculoskeletal exam: PRESENT: ambulatory, full ROM. ABSENT: deformity, dislocation Neurological exam: PRESENT: alert, awake, oriented to person, oriented to place, oriented to time, oriented to situation, CN II-XII grossly intact. ABSENT: altered Psychiatric exam: PRESENT: appropriate affect, normal mood Skin exam: PRESENT: dry, intact, normal color, warm. ABSENT: pallor Results Laboratory Results: 08/11/20 13:40 08/11/20 04:13 08/11/20 08/11/20 08/11/20 04:13 04:13 04:13 WBC 4.4 RBC 3.73 L Hgb 12.1 L Hct 34.4 L MCV 92 MCH 32.4 MCHC 35.1 RDW 13.7 Plt Count 133 L Seg Neutrophils % 66.3 Sodium 139.0 Potassium 4.1 Chloride 105 Carbon Dioxide 25 Anion Gap 9 BUN 25 H Creatinine 0.81 Est GFR ( Amer) > 60 Glucose 123 H Lactic Acid Calcium 9.4 Total Bilirubin 0.5 AST 40 Alkaline Phosphatase 42 Total Protein 6.8 Albumin 4.1 Blood Type A POSITIVE Antibody Screen NEGATIVE 08/11/20 08/11/20 08/11/20 09:27 09:27 13:40 WBC 5.6 3.8 L RBC 3.70 L 3.50 L Hgb 11.9 L 11.0 L Hct 34.3 L 32.1 L MCV 93 92 MCH 32.1 31.5 MCHC 34.5 34.4 RDW 13.9 13.6 Plt Count 155 132 L Seg Neutrophils % Sodium Potassium Chloride Carbon Dioxide Anion Gap BUN Creatinine Est GFR ( Amer) Glucose Lactic Acid 0.9 Calcium Total Bilirubin AST Alkaline Phosphatase Total Protein Albumin Blood Type Antibody Screen 08/11/20 08/11/20 09:27 13:40 Troponin I 0.014 < 0.012 Impressions: Abdomen/Pelvis CTA 08/11/20 06:52 IMPRESSION: No abdominal aortic aneurysm, dissection, or flow limiting stenosis. No evidence of active enteric hemorrhage. No acute findings. Chronic and incidental findings as detailed above. Assessment and Plan - Diagnosis (1) Acute lower gastrointestinal bleeding Is this a current diagnosis for this admission?: Yes Plan: Patient hemodynamically stable Bright red blood per rectum. Guaiac + stools in the ED. Hgb 12.1, baseline appears to be 14. Lactic acid WNL. Troponin 0.014, <0.012 CT abdomen: divirticula noted without inflammatory changes or active bleed. Surgery on board, note reviewed in detail. Two large bore IVs in place IVF initiated Iv protonix Monitor Hgb/Hct levels overnight, if stable can dc home with outpatient colonoscopy next week with surgery - If continues to drop bleed/hgb continues to drop bowel prep tomorrow with c olonoscopy 08/13 Clear liquid diet Monitor vitals closely. I have asked nurse to document patient's BMs emphasizing blood. (2) Diverticular disease Is this a current diagnosis for this admission?: Yes Plan: Colonic diverticula noted on CT abdomen. Without evidence of active bleed. Diverticulosis likely cause of lower GI bleed. Plan as per #1. (3) Normocytic normochromic anemia Is this a current diagnosis for this admission?: Yes Plan: Hgb/Hct 12.1/34.4. Secondary to lower GI bleed. Plan as per #1 (4) Hypertension Qualifiers: Hypertension type: essential hypertension Qualified Code(s): I10 - Essential (primary) hypertension Is this a current diagnosis for this admission?: Yes Plan: Home medications include hydrochlorothiazide 12.5 mg p.o. daily, aiming for losartan 300 mg p.o. daily. Initiate home medications. Monitor blood pressure. Notably patient did not take blood pressure medications today. (5) Coronary artery disease Qualifiers: Coronary Disease-Associated Artery/Lesion type: [place] artery [place] vs. transplanted heart: [place] heart Associated angina: without angina Qualified Code(s): I25.10 - Atherosclerotic heart disease of [place] coronary artery without angina pectoris Is this a current diagnosis for this admission?: Yes Plan: History of coronary artery disease with CA and 3 stents in December 2017. Follows cardiology in [place], last visit 1 week ago reportedly doing great. Trop 0.014, <0.012 EKG without ischemic changes. Without ischemic symptoms. On medication includes 81 mg aspirin nightly, hold for now. - Plan Summary Summary: Monitor Hgb/HCT, VS and BM overnight if remains stable plan is to discharge home tomorrow with scheduled outpatient elective colonoscopy next week. - Time Time Spent with patient: 35 or more minutes Medications reviewed and adjusted accordingly: Yes Anticipated Discharge Disposition: Home, Self Care Anticipated Discharge Timeframe: within 48 hours
[2020-08-11] MEDS: HYDROCHLOROTHIAZIDE 12.5 MG TABLET PO SCH (18:25)
[2020-08-12 05:45] LABS: ABSOLUTE EOSINOPHILS # (AUTO) 0.4 10^3/uL (0.0-0.6); ABSOLUTE LYMPHOCYTES (AUTO) 1.3 10^3/uL (0.5-4.7); ABSOLUTE MONOCYTES (AUTO) 0.5 10^3/uL (0.1-1.4); ABSOLUTE NEUT (AUTO) 1.7 10^3/uL (1.7-8.2); EOSINOPHILS % (AUTO) 9.4 % (0-6); HEMATOCRIT 31.9 % (37.9-51.0); HEMOGLOBIN 11.1 g/dL (13.5-17.0); LYMPHOCYTES % (AUTO) 33.5 % (13-45); MEAN CORPUSCULAR HEMOGLOBIN 32.1 pg (27.0-33.4); MEAN CORPUSCULAR HGB CONC 34.7 g/dL (32.0-36.0); MEAN CORPUSCULAR VOLUME 92 fl (80-97); MONOCYTES % (AUTO) 12.2 % (3-13); PLATELET COUNT 134 10^3/uL (150-450); RED BLOOD COUNT 3.46 10^6/uL (4.35-5.55); RED CELL DISTRIBUTION WIDTH 13.6 % (11.5-14.0); SEGMENTED NEUTROPHILS % (AUTO) 43.9 % (42-78); TOTAL CELLS COUNTED % (AUTO) 100 %; WHITE BLOOD COUNT 3.9 10^3/uL (4.0-10.5)
[2020-08-12] MEDS: HYDROCHLOROTHIAZIDE 12.5 MG TABLET PO SCH ×2 (07:36→07:39)
--- NOTE | 2020-08-12 08:22 | PDOC PROGRESS REPORT ---
Subjective Date:: 08/12/20 Subjective:: Feels well, no further rectal bleeding. Reason For Visit: GI BLEED,DIVERTICULAR DISEASE Physical Exam Vital Signs: Temp Pulse Resp BP Pulse Ox 97.5 F 62 18 156/81 H 98 08/12/20 07:53 08/12/20 00:22 08/12/20 00:22 08/12/20 00:22 08/12/20 00:22 Intake & Output 08/11/20 08/12/20 08/13/20 06:59 06:59 06:59 Intake Total 1260 Balance 1260 Weight 90.9 kg 75.4 kg General appearance: PRESENT: no acute distress Head exam: PRESENT: normocephalic Eye exam: PRESENT: EOMI Ear exam: PRESENT: normal external ear exam Mouth exam: PRESENT: moist Neck exam: PRESENT: full ROM Respiratory exam: PRESENT: clear to auscultation tanika, unlabored Cardiovascular exam: PRESENT: RRR Pulses: PRESENT: +2 pedal pulses bilateral Vascular exam: PRESENT: normal capillary refill Breast: PRESENT: Normal GI/Abdominal exam: PRESENT: soft Rectal exam: PRESENT: deferred Extremities exam: PRESENT: full ROM Musculoskeletal exam: PRESENT: full ROM Neurological exam: PRESENT: alert, awake, oriented to person, oriented to place Psychiatric exam: PRESENT: appropriate affect Skin exam: PRESENT: dry Results Laboratory Results: 08/12/20 05:08 08/11/20 04:13 08/11/20 08/11/20 08/11/20 09:27 09:27 13:40 WBC 5.6 3.8 L RBC 3.70 L 3.50 L Hgb 11.9 L 11.0 L Hct 34.3 L 32.1 L MCV 93 92 MCH 32.1 31.5 MCHC 34.5 34.4 RDW 13.9 13.6 Plt Count 155 132 L Seg Neutrophils % Lactic Acid 0.9 08/12/20 05:08 WBC 3.9 L RBC 3.46 L Hgb 11.1 L Hct 31.9 L MCV 92 MCH 32.1 MCHC 34.7 RDW 13.6 Plt Count 134 L Seg Neutrophils % 43.9 Lactic Acid 08/11/20 08/11/20 09:27 13:40 Troponin I 0.014 < 0.012 Impressions: Abdomen/Pelvis CTA 08/11/20 06:52 IMPRESSION: No abdominal aortic aneurysm, dissection, or flow limiting stenosis. No evidence of active enteric hemorrhage. No acute findings. Chronic and incidental findings as detailed above. Assessment & Plan - Time Anticipated Discharge Disposition: Home, Self Care Anticipated Discharge Timeframe: within 24 hours - Plan Summary Plan Summary: Impression lower GI bleed spontaneously ceased. Patient denies any further rectal bleeding overnight and this morning. Hemoglobin has remained stable since his admission. Patient wants to be discharged home today for Rick[place] and will return for an elective colonoscopy as an outpatient. Patient can be scheduled in the surgical clinic in 7 to 10 days after discharge. He was given strict instructions to return to the hospital should he have recurrent bleeding. Surgery will sign off for now please reconsult if necessary.
[2020-08-12 09:02] VITALS: BP 152/100
[2020-08-12] MEDS ORDERED: LOSARTAN POTASSIUM 50 MG TABLET PO SCH (10:00)
--- NOTE | 2020-08-12 12:56 | PDOC DISCHARGE SUMMARY ---
Impression - Admit/DC Date/PCP Admission Date/Primary Care Provider: 08/11/20 09:15 SUE WALLACE MD Discharge Date: 08/12/20 - Discharge Diagnosis (1) Acute lower gastrointestinal bleeding Is this a current diagnosis for this admission?: Yes (2) Diverticular disease Is this a current diagnosis for this admission?: Yes (3) Normocytic normochromic anemia Is this a current diagnosis for this admission?: Yes (4) Hypertension Is this a current diagnosis for this admission?: Yes (5) Coronary artery disease Is this a current diagnosis for this admission?: Yes - Additional Information Resuscitation Status: Full Code Discharge Diet: As Tolerated Discharge Activity: Activity As Tolerated Referrals: SUE WALLACE MD [Primary Care Provider] - Follow up as needed Home Medications: Aspirin [Ecotrin 81 mg EC Tablet] 81 mg PO QHS 08/11/20 Hydrochlorothiazide [Hydrodiuril 12.5 mg Tablet] 12.5 mg PO QAM 08/11/20 Irbesartan 300 mg PO DAILY 08/11/20 Nitroglycerin [Nitrostat 0.4 mg (1/150 Gr) Tabs 25/Bottle] 1 tab SL Q5MP PRN 08/11/20 History of Present Illiness History of Present Illness: ABBI OWUSU is a 80 year old male with past medical history hypertension and CAD you presented to the emergency department today with concerns regarding 2-day history of painless rectal bleeding. Reports sudden onset yesterday morning around 10 AM, since has experienced 6 additional episodes though with notably less blood with each passing bowel movement. Initially stool was full/intact, progressively became looser, loose stools have since resolved. Reports single episode today. Reports episode of feeling slightly weak and woozy after rising from bed and using the restroom, this quickly resolved with rest. Denies syncopal episode. Denies blood thinner use outside of 81 mg aspirin nightly. Denies history of GI bleed in past. His last colonoscopy was 5 years ago significant for internal hemorrhoids and no other findings. Reports abdominal surgical history of hernia repair in [place] 5 years ago. Denies associated fever, chills, abdominal pain, nausea or vomiting. On evaluation in the ED he is hemodynamically stable. Orthostatic hypotension noted, though sbp does not drop below 100. Hbb/Hct on admission 12.1/34.4. Plt count 133. Coagulation studies within normal limits. BUN elevated at 25, creatinine within normal limits. Lactic acid within normal limits. First troponin slightly elevated at 0.014 with a second less than 0.012. EKG without changes. CT abdomen notable for colonic diverticula without inflammatory changes, no evidence of active bleeding. Patient bolused 1L NS in the ED. Hospitalist asked to admit patient for further observation and treatment. Hospital Course Hospital Course: Acute lower gastrointestinal bleeding Patient hemodynamically stable entire hospital course. Bright red blood per rectum as per history. Guaiac + stools in the ED. Hgb 12.1, baseline appears to be 14. Lactic acid WNL, Troponin 0.014, <0.012 CT abdomen: divirticula noted without inflammatory changes or active bleed. Surgery on board, note reviewed in detail. Two large bore IVs in place, IVF initiated, Iv protonix Patient without blood in stool since admission. Hemoglobin has remained stable. Surgery on board, notes reviewed, patient to follow-up outpatient colonoscopy within the next 7 to 10 days. Patient stable and ready for discharge. Diverticular disease Colonic diverticula noted on CT abdomen. Without evidence of active bleed. Diverticulosis likely cause of lower GI bleed. Plan as per #1. Normocytic normochromic anemia Hgb/Hct 12.1/34.4. -> 11.9, 11.0. 11.1. Stable. Secondary to lower GI bleed. Plan as per #1 Hypertension Home medications include hydrochlorothiazide 12.5 mg p.o. daily, aiming for losartan 300 mg p.o. daily. Initiate home medications. Monitor blood pressure. Notably patient did not take blood pressure medications today. Coronary artery disease History of coronary artery disease with SC and 3 stents in December 2017. Follows cardiology in [place], last visit 1 week ago reportedly doing great. Trop 0.014, <0.012 EKG without ischemic changes. Without ischemic symptoms. On medication includes 81 mg aspirin nightly, hold for now. Physical Exam Vital Signs: Temp Pulse Resp BP Pulse Ox 97.5 F 58 L 18 152/100 H 99 08/12/20 08:59 08/12/20 08:59 08/12/20 08:59 08/12/20 08:59 08/12/20 08:59 Intake & Output 08/11/20 08/12/20 08/13/20 06:59 06:59 06:59 Intake Total 1260 Balance 1260 Weight 90.9 kg 75.4 kg Additional comments: General appearance: PRESENT: no acute distress, cooperative, well-developed, well-nourished Head exam: PRESENT: atraumatic, normocephalic Neck exam: PRESENT: full ROM. ABSENT: JVD, lymphadenopathy, tenderness Respiratory exam: PRESENT: clear to auscultation tanika, symmetrical, unlabored. ABSENT: rales, rhonchi, tachypnea, wheezes Cardiovascular exam: PRESENT: RRR, +S1, +S2. ABSENT: diastolic murmur, systolic murmur GI/Abdominal exam: PRESENT: normal bowel sounds, soft, without TTP. Musculoskeletal exam: PRESENT: ambulatory, full ROM. Neurological exam: PRESENT: alert, awake, oriented to person, oriented to place, oriented to time, oriented to situation, CN II-XII grossly intact. ABSENT: altered Psychiatric exam: PRESENT: appropriate affect, normal mood Skin exam: PRESENT: dry, intact, normal color, warm. ABSENT: pallor Results Laboratory Results: WBC 3.9 10^3/uL (4.0-10.5) L 08/12/20 05:08 RBC 3.46 10^6/uL (4.35-5.55) L 08/12/20 05:08 Hgb 11.1 g/dL (13.5-17.0) L 08/12/20 05:08 Hct 31.9 % (37.9-51.0) L 08/12/20 05:08 MCV 92 fl (80-97) 08/12/20 05:08 MCH 32.1 pg (27.0-33.4) 08/12/20 05:08 MCHC 34.7 g/dL (32.0-36.0) 08/12/20 05:08 RDW 13.6 % (11.5-14.0) 08/12/20 05:08 Plt Count 134 10^3/uL (150-450) L 08/12/20 05:08 Lymph % (Auto) 33.5 % (13-45) 08/12/20 05:08 [place] % (Auto) 12.2 % (3-13) 08/12/20 05:08 Eos % (Auto) 9.4 % (0-6) H 08/12/20 05:08 Baso % (Auto) 1.0 % (0-2) 08/12/20 05:08 Absolute Neuts (auto) 1.7 10^3/uL (1.7-8.2) 08/12/20 05:08 Absolute Lymphs (auto) 1.3 10^3/uL (0.5-4.7) 08/12/20 05:08 Absolute Monos (auto) 0.5 10^3/uL (0.1-1.4) 08/12/20 05:08 Absolute Eos (auto) 0.4 10^3/uL (0.0-0.6) 08/12/20 05:08 Absolute Basos (auto) 0.0 10^3/uL (0.0-0.2) 08/12/20 05:08 Seg Neutrophils % 43.9 % (42-78) 08/12/20 05:08 PT 13.3 SEC (11.4-15.4) 08/11/20 05:45 INR 0.99 08/11/20 05:45 APTT 27.8 SEC (23.5-35.8) 08/11/20 05:45 Sodium 139.0 mmol/L (137-145) 08/11/20 04:13 Potassium 4.1 mmol/L (3.6-5.0) 08/11/20 04:13 Chloride 105 mmol/L (98-107) 08/11/20 04:13 Carbon Dioxide 25 mmol/L (22-30) 08/11/20 04:13 Anion Gap 9 (5-19) 08/11/20 04:13 BUN 25 mg/dL (7-20) H 08/11/20 04:13 Creatinine 0.81 mg/dL (0.52-1.25) 08/11/20 04:13 Est GFR ( Amer) > 60 (>60) 08/11/20 04:13 Est GFR (MDRD) Non-Af > 60 (>60) 08/11/20 04:13 Glucose 123 mg/dL (75-110) H 08/11/20 04:13 Lactic Acid 0.9 mmol/L (0.7-2.1) 08/11/20 09:27 Calcium 9.4 mg/dL (8.4-10.2) 08/11/20 04:13 Total Bilirubin 0.5 mg/dL (0.2-1.3) 08/11/20 04:13 Direct Bilirubin 0.2 mg/dL (0.0-0.4) 08/11/20 04:13 Neonat Total Bilirubin Not Reportable 08/11/20 04:13 Neonat Direct Bilirubin Not Reportable 08/11/20 04:13 Neonat Indirect Bili Not Reportable 08/11/20 04:13 AST 40 U/L (17-59) 08/11/20 04:13 ALT 34 U/L (<50) 08/11/20 04:13 Alkaline Phosphatase 42 U/L (38-126) 08/11/20 04:13 Troponin I < 0.012 ng/mL 08/11/20 13:40 Total Protein 6.8 g/dL (6.3-8.2) 08/11/20 04:13 Albumin 4.1 g/dL (3.5-5.0) 08/11/20 04:13 Influenza A (RT-PCR) NEGATIVE (NEGATIVE) 08/11/20 10:18 Influenza B (RT-PCR) NEGATIVE (NEGATIVE) 08/11/20 10:18 RSV (RT-PCR) NEGATIVE (NEGATIVE) 08/11/20 10:18 SARS-CoV-2 Rap RNA(RT-PCR) NEGATIVE (NEGATIVE) 08/11/20 10:18 Blood Type A POSITIVE 08/11/20 04:13 Antibody Screen NEGATIVE 08/11/20 04:13 08/11/20 08/11/20 09:27 13:40 Troponin I 0.014 < 0.012 Impressions: Abdomen/Pelvis CTA 08/11/20 06:52 IMPRESSION: No abdominal aortic aneurysm, dissection, or flow limiting stenosis. No evidence of active enteric hemorrhage. No acute findings. Chronic and incidental findings as detailed above. Plan Plan of Treatment: Follow-up elective outpatient colonoscopy at surgical clinic within 7 to 10 days. Time Spent: Greater than 30 Minutes Stroke Is this a Stroke Patient?: No Acute Heart Failure Is this a Heart Failure Patient?: No
== END 2020-08-12 10:21 | disposition home or self-care (01) ==
LOC: ER 03:44 → EH 09:15 → INTOOBSV 09:15 → 4N 11:40
PROVIDERS: ADMIT Internal Medicine; ATTEND Physician Assistant
DX: K57.30 Diverticulosis of large intestine without perforation or abscess without bleeding (principal); D64.9 Anemia, unspecified; I10 Essential (primary) hypertension; I25.10 Atherosclerotic heart disease of native coronary artery without angina pectoris; R19.7 Diarrhea, unspecified; Z79.82 Long term (current) use of aspirin; Z79.899 Other long term (current) drug therapy; Z20.828 Contact with and (suspected) exposure to other viral communicable diseases
CPT/HCPCS: 99285; 86900; 86901; 36415 ×2; 86850; 83605; 85025 ×2; 85610; 85730; 0241U ×4; 80053; 84484; 74174; G0378 ×2; A9270 ×3; C9113; J3490 ×2; J7030; C9803

== ENCOUNTER 2020-09-08 12:20 | Day surgery (SDC) | payer MEDICARE ==
[~2020-09-08 12:20] MED LIST: HYDRALAZINE HCL INJ/PF 20 MG/1 ML SDV ONE
[2020-09-08] MEDS ORDERED: PROPOFOL INJ 200 MG/20 ML VIAL IV ONE (13:58)
--- NOTE | 2020-09-08 15:21 | Operative Report ---
Nonrecallable Operative Report DATE OF SURGERY: 09/08/20 PREOPERATIVE DIAGNOSIS: Colonic bleeding POSTOPERATIVE DIAGNOSIS: Same OPERATION: Colonoscopy SURGEON: PHILIP LIZ ANESTHESIA: LMAC TISSUE REMOVED OR ALTERED: None COMPLICATIONS: None ESTIMATED BLOOD LOSS: 0 INTRAOPERATIVE FINDINGS: Diffuse diverticulosis pandiverticulosis PROCEDURE: Patient was brought to the operating awake alert in stable condition given IV sedation placed in left lateral decubitus positioning and given anesthetic given sedation by anesthesia. The Olympus colonoscope was passed into the rectum and traversed the sigmoid colon to the descending colon we then traversed the descending colon to the splenic flexure transverse colon hepatic flexure and ascending colon all the way to the cecum. The ileocecal valve was identified. The scope was then slowly withdrawn there were a few diverticula of the ascending colon as we traversed the hepatic flexure that appeared to be normal the transverse colon also had diverticulosis. They were scattered. We then continued our withdraw the scope did not note any polyps or masses we traversed the splenic flexure as we traversed the splenic flexure to the descending colon there were numerous diverticula. The scope was then slowly withdrawn through the sigmoid colon and the sigmoid colon there was innumerable diverticula and they were large enough to admit the scope. Scope was then slowly withdrawn through the rectum no evidence of any mucosal abnormalities or polyps. Patient also had grade 2 hemorrhoids on final withdrawal of the scope. Impression pandiverticulosis. Severe diverticulosis of the sigmoid colon. Grade 2 hemorrhoids. Recommendations repeat colonoscopy in 10 years. Continue Metamucil at least once a day.
--- NOTE | 2020-09-08 15:29 | Discharge Summary ---
Discharge Summary (SDC) - Discharge Final Diagnosis: Diverticulosis Date of Surgery: 09/08/20 Discharge Date: 09/08/20 Condition: Good Referrals: SUE WALLACE MD [Primary Care Provider] - Discharge Activity: Activity As Tolerated Report the Following to Your Physician Immediately: Increase in Pain
[2020-09-08 16:23] VITALS: BP 192/104
== END 2020-09-08 16:15 | disposition home or self-care (01) ==
LOC: OROUT 12:20
PROVIDERS: ATTEND Surgery
DX: K57.31 Diverticulosis of large intestine without perforation or abscess with bleeding (principal); K64.1 Second degree hemorrhoids; Z01.812 Encounter for preprocedural laboratory examination; Z20.822 Contact with and (suspected) exposure to COVID-19; Z95.5 Presence of coronary angioplasty implant and graft; I25.10 Atherosclerotic heart disease of native coronary artery without angina pectoris; I10 Essential (primary) hypertension; E11.9 Type 2 diabetes mellitus without complications; Z79.84 Long term (current) use of oral hypoglycemic drugs
CPT/HCPCS: 45378; 0241U; 00812; J0360; J2704; C9803; 36415; 812